=== PATIENT | female | born 1965 | race Caucasian/White ===

== ENCOUNTER 2023-10-08 00:33 | Inpatient (IN) ==
[2023-10-08] MEDS: Ondansetron 4 mg VIAL 2 MG/ML 2 ml VIAL IV ONE (01:38)
[2023-10-08] MEDS: Metoclopramide 5 MG/ML VIAL (10 mg) IV ONE (01:39)
[2023-10-08] MEDS: Lactated Ringers 1000 ml BAG 1,000 ML IV ONE (01:40)
[2023-10-08] MEDS: Dexamethasone IV 4 MG/ML VIAL 1 ml VIAL IV SLOW PU ONE (03:18)
[2023-10-08] MEDS ORDERED: Lorazepam PYXIS KEY PRN (03:35)
[2023-10-08] MEDS: LORazepam 2 mg VIAL 1 ml IV ONE (03:43)
[2023-10-08] MEDS ORDERED: Calcium Carb (TUMS) 500 mg CHEW TAB PO PRN (08:17)
[2023-10-08] MEDS ORDERED: Benzocaine/Menthol LOZ MT PRN (08:17)
[2023-10-08] MEDS ORDERED: Phenol 1.4% Throat Spray BTL MT PRN (08:17)
[2023-10-08] MEDS ORDERED: Dextran 70/Hypromellose Tears Eye Drops 15 ml BTL (for Artificials Tears) BOTH EYES PRN (08:17)
[2023-10-08 09:41] LABS: Activated Partial Thrombo Time 29.5 seconds (26.0-38.0); INR 1.06 (0.83-1.13)
[2023-10-08 09:53] LABS: Creatinine, Serum 0.7 mg/dL (0.51-0.95); Potassium 3.8 mmol/L (3.5-5.0)
[2023-10-08 09:54] LABS: Albumin 4.4 g/dL (3.2-5.2); Albumin/Globulin Ratio 1.8 (1-3); Calcium 9.6 mg/dL (8.6-10.3); Globulin 2.4 g/dL (2-4); Total Bilirubin 0.8 mg/dL (0.2-1.0); Total Protein 6.8 g/dL (6.4-8.9); eGFR CKD-EPI 100.8 (>60)
[2023-10-08] MEDS: Lactated Ringers 1000 ml BAG 1,000 ML IV SCH (10:19)
[2023-10-08] MEDS: Dexamethasone IV 4 MG/ML VIAL 1 ml VIAL IV SLOW PU SCH (14:14)
[2023-10-08 14:24] LABS: ABS Lymphocytes 0.5 10^3/uL (1.0-4.8); ABS Monocytes 0.3 10^3/uL (0.0-0.9); ABS Neutrophils 3.6 10^3/uL (1.5-7.6); Hematocrit 41.5 % (35-45); Lymphocyte % 12.2 %; Mean Corpuscular Hemoglobin 29.2 pg (27-33); Mean Corpuscular Hgb Conc 33.8 g/dL (31-36); Mean Corpuscular Volume 86.2 fL (80-97); Platelet Count 238 10^3/uL (150-450); Red Blood Count 4.81 10^6/uL (3.63-4.92); Red Cell Distribution Width 13.2 % (12-17); White Blood Count 4.5 10^3/uL (3.8-11.8)
[2023-10-08] MEDS: Iohexol 300 (CONTRAST) 10 ML SDV IV ONE (15:17)
[2023-10-08] MEDS: Gadoteridol (CONTRAST) 279.3 MG/ML 10 ML IV ONE (21:29)
[2023-10-11] MEDS ORDERED: Ondansetron 4 mg VIAL 2 MG/ML 2 ml VIAL IV PRN (08:33)
[2023-10-11] MEDS ORDERED: Naloxone 0.4 mg VIAL 0.4 mg/ml 1 ml VIAL IV PRN (08:33)
[2023-10-11] MEDS ORDERED: fentaNYL 100 mcg/2 ml 50 MCG/ML VIAL IV PRN (08:33)
[2023-10-11] MEDS ORDERED: Propofol 10 MG/ML 20 ML BTL ONE ×2 (11:53→19:41)
[2023-10-11] MEDS ORDERED: Lidocaine 2% PF 5 ML VIAL ONE (11:53)
[2023-10-11] MEDS ORDERED: Rocuronium 50 mg VIAL 10 mg/ml 5 ml VIAL (50 mg) ONE ×2 (11:53→17:12)
[2023-10-11] MEDS ORDERED: fentaNYL 100 mcg/2 ml 50 MCG/ML VIAL ONE ×3 (11:53→19:42)
[2023-10-11] MEDS ORDERED: Midazolam 2 mg/2 ml VIAL 1 mg/ml 2 ml VIAL (2 mg) ONE ×3 (11:53→15:10)
[2023-10-11] MEDS ORDERED: Lidocaine 1% w EPI 1:100,000 MDV 20 ML VIAL ONE (12:41)
[2023-10-11] MEDS ORDERED: Gelfoam Sponge SIZE 100 SPONGE ONE (12:41)
[2023-10-11] MEDS ORDERED: Thrombin 5,000 UNITS 1 APPLIC KIT - topical use - TOPICAL ONE (12:41)
[2023-10-11] MEDS ORDERED: Mannitol 25% (12.5 GM) 50 ML 12.5 GM/50 ML VIAL ONE (12:41)
[2023-10-11] MEDS ORDERED: Dexamethasone IV 4 MG/ML VIAL 1 ml VIAL ONE ×2 (13:23→16:50)
[2023-10-11] MEDS ORDERED: ceFAZolin VIAL VIAL ONE ×2 (16:38→16:40)
[2023-10-11] MEDS ORDERED: Ondansetron 4 mg VIAL 2 MG/ML 2 ml VIAL ONE (16:50)
[2023-10-11] MEDS ORDERED: Thrombin 5,000 UNITS(BOVINE) for Ultrasound Guided Pseudoaneursym ONE (17:11)
[2023-10-11] MEDS ORDERED: Phenylephrine 40 mcg/mL 10mL (400mcg) SYRINGE ONE (17:11)
[2023-10-11] MEDS ORDERED: Magnesium Hydroxide LIQ 30 ML UDC PO PRN (19:41)
[2023-10-11] MEDS ORDERED: Dextran 70/Hypromellose Tears Eye Drops 15 ml BTL (for Artificials Tears) BOTH EYES PRN (19:41)
[2023-10-11] MEDS ORDERED: Benzocaine/Menthol LOZ MT PRN (19:41)
[2023-10-11] MEDS ORDERED: Senna TAB 8.6 mg TAB PO PRN (19:41)
[2023-10-11] MEDS ORDERED: Phenol 1.4% Throat Spray BTL MT PRN (19:41)
[2023-10-11] MEDS: Ondansetron 4 mg VIAL 2 MG/ML 2 ml VIAL IV PRN (21:30)
[2023-10-11] MEDS: Lactated Ringers 1000 ml BAG 1,000 ML IV SCH (21:52)
[2023-10-11] MEDS: Morphine 2 MG/ML SYRINGE IV PRN (22:43)
[2023-10-12] MEDS: Gadoteridol (CONTRAST) 279.3 MG/ML 10 ML IV ONE (15:58)
[2023-10-14 05:57] VITALS: BP 118/83
== END 2023-10-14 11:45 | disposition home or self-care (01) | DRG 21 ==
LOC: ED 00:33 → EDHOLD 08:17 → SSU 08:48
PROVIDERS: ADMIT Neurological Surgery; ATTEND Neurological Surgery